=== PATIENT | female | born 1985 | race Caucasian/White ===

== ENCOUNTER 2022-01-05 01:45 | Emergency (ER) | payer OTHER ==
[2022-01-05] MEDS ORDERED: MORPHINE SULFAT15 M1 PO (03:12)
== END 2022-01-05 03:27 | disposition home or self-care (01) ==
LOC: ER1 01:45
DX: M54.50 Low back pain, unspecified (principal); E11.9 Type 2 diabetes mellitus without complications
CPT/HCPCS: 81001; 84703; 96372; 99283; J1170

== ENCOUNTER 2022-01-13 02:11 | Emergency (ER) | payer OTHER ==
[~2022-01-13 02:11] MED LIST: MORPHINE SULFAT15 M1 PO
== END 2022-01-13 06:21 | disposition short-term general hospital (02) ==
LOC: ER1 02:11
DX: M54.50 Low back pain, unspecified (principal); G89.29 Other chronic pain; E10.9 Type 1 diabetes mellitus without complications; F17.210 Nicotine dependence, cigarettes, uncomplicated; Z90.49 Acquired absence of other specified parts of digestive tract; Z90.710 Acquired absence of both cervix and uterus; Z86.73 Personal history of transient ischemic attack (TIA), and cerebral infarction without residual deficits
CPT/HCPCS: 96372; 99284; J2270; J2405

== ENCOUNTER 2022-02-03 15:20 | Emergency (ER) | payer OTHER ==
[2022-02-03 18:05] LABS: HEMOGLOBIN 15.3 gm/dl (12.3-15.3); RED BLOOD COUNT 4.84 M/UL (4.00-5.10)
[2022-02-03] MEDS ORDERED: ACETAMINOPHEN500 M1 PO (20:36)
== END 2022-02-03 20:44 | disposition home or self-care (01) ==
LOC: ER1 15:20
PROVIDERS: Nurse Practitioner
DX: G89.18 Other acute postprocedural pain (principal); M54.50 Low back pain, unspecified; E11.22 Type 2 diabetes mellitus with diabetic chronic kidney disease; N18.9 Chronic kidney disease, unspecified; F17.290 Nicotine dependence, other tobacco product, uncomplicated; Z88.6 Allergy status to analgesic agent; Z86.718 Personal history of other venous thrombosis and embolism; Z88.8 Allergy status to other drugs, medicaments and biological substances
CPT/HCPCS: 72132; 80053; 81001; 84703; 85025; 85652; 86140; 99284; Q9967